=== PATIENT | male | born 1955 | race African-American/Black ===

== ENCOUNTER 2017-02-22 17:17 | Emergency (ER) | payer MEDICAID ==
[~2017-02-22] VITALS: Ht 177.8 cm; Wt 98.0 kg
[2017-02-22] MEDS ORDERED: INSU3INS6 SQ (17:31)
[2017-02-22] MEDS ORDERED: GLYB5TAB7 PO (17:31)
[2017-02-22] MEDS ORDERED: ATOR20TA PO (17:31)
[2017-02-22] MEDS ORDERED: LACTATED RINGERS 1,000 ML IV SCH (18:00)
[2017-02-22 18:43] LABS: HEMATOCRIT. 41.9 % (42.0-52.0); HEMOGLOBIN. 14.2 g/dL (14.0-18.0); LYMPHOCYTES % 41.4 % (20.0-50.0); MEAN CORPUSCULAR HEMOGLOBIN 28.3 pg (28.0-32.0); MEAN CORPUSCULAR VOLUME 83.6 fL (80.0-94.0); MEAN PLATELET VOLUME 8.8 fl (7.4-10.4); MONOCYTES % 8.3 % (2.0-8.0); NEUTROPHILS % 46.3 % (40.0-76.0); PLATELET 205 x1000/uL (130-400); RED BLOOD CELL COUNT 5.01 mill/uL (4.7-6.1); RED CELL DISTRIBUTION WIDTH 13.7 % (11.6-14.6)
[2017-02-22 18:49] LABS: INR 1.1; PROTHROMBIN TIME 11.4 sec (9.4-11.6)
[2017-02-22 18:57] LABS: BG BASE EXCESS 1.7 mmol/L (-2.0-2.0); BG DEOXYHEMOGLOBIN 3.4 % (0.0-5.0); BG FRACTION INSPIRED OXYGEN 21; BG HCO3 ACT 25.8 mmol/L (22.0-26.0); BG METHEMOGLOBIN 0.4 % (0.0-1.5); BG OXYGEN SATURATION 96.6 % (92.0-98.5); BG OXYHEMOGLOBIN 96.2 % (94.0-97.0); BG PCO2 38.8 mmHg (35.0-45.0); BG PH 7.441 (7.350-7.450); BG PO2 90.2 mmHg (75.0-100.0); BG SAMPLE SITE RIGHT BRACHIAL; BG TOTAL HEMOGLOBIN 13.6 g/dL (12.0-18.0); BG VENT MODE ROOM AIR
[2017-02-22 18:59] LABS: CARBON DIOXIDE 32 mEq/L (21-32); CHLORIDE 102 mEq/L (98-107)
[2017-02-22 19:02] LABS: TROPONIN I < 0.02 ng/mL (0.00-0.04)
[2017-02-22 20:40] VITALS: BP 137/89
[2017-02-22 20:50] LABS: CLARITY URINE CLEAR (CLEAR); COLOR URINE YELLOW (YELLOW); GLUCOSE URINE NEGATIVE (NEGATIVE); KETONES URINE NEGATIVE (NEGATIVE); LEUKOCYTE ESTERASE URINE TRACE (NEGATIVE); NITRITE URINE NEGATIVE (NEGATIVE); OCCULT BLOOD URINE 1+ (NEGATIVE); PH URINE 5.5 (4.5-8.0); PROTEIN URINE NEGATIVE (NEGATIVE); SPECIFIC GRAVITY URINE 1.016 (1.005-1.030); UROBILINOGEN URINE 0.2 E.U./dL (0.2-1.0)
== END 2017-02-22 21:45 | disposition home or self-care (01) ==
LOC: ER 17:24
DX: E11.9 Type 2 diabetes mellitus without complications (principal); G43.909 Migraine, unspecified, not intractable, without status migrainosus; G47.30 Sleep apnea, unspecified; Z98.890 Other specified postprocedural states; Z88.0 Allergy status to penicillin; Z79.4 Long term (current) use of insulin
CPT/HCPCS: 36415; 36600; 71010; 80053; 81001; 82010; 82375; 82805; 83880; 84484; 85025; 85610; 93005; 99285; J7120